=== PATIENT | female | born 1950 | race Caucasian/White ===

== ENCOUNTER 2020-03-14 10:21 | Outpatient (NON) | payer MEDICARE, MEDICAID, SELFPAY ==
[2020-03-15 00:43] LABS: SARS-CoV-2 RNA PCR Positive
== END 2020-03-14 10:22 ==
PROVIDERS: PCP Internal Medicine; Visit Provider Clinical Nurse Specialist
DX: U07.1 COVID-19 (principal)
CPT/HCPCS: 87635; C9803; U0003

== ENCOUNTER 2021-01-10 13:04 | Emergency (ER) | payer MEDICARE, MEDICAID, SELFPAY ==
[2021-01-10 13:25] VITALS: BP 136/76; PULSE 62; RESP 20; TEMP 36.6; O2SAT 97
--- NOTE | 2021-01-10 13:47 | ED.GENADULT ---
HPI - General Adult General Chief complaint: Wound/Laceration Stated complaint: rt leg puncture wound Time Seen by Provider: 01/10/21 13:43 Source: patient and RN notes reviewed Mode of arrival: ambulatory Limitations: no limitations History of Present Illness HPI narrative: Patient presents today resting in update of her tetanus vaccine. States she sustained a puncture wound from a nail that was sticking out of the wall today. She brushed up against it with her right lower leg this morning, puncturing her leg. States she cleaned the area with peroxide and applied a Band-Aid. It has been over 10 years since her last tetanus vaccine. She would not like the puncture wound evaluated or treated today. MD complaint: Tetanus vaccine Related Data Home Medications Medication Instructions Recorded Confirmed aspirin 81 mg chewable tablet 81 mg PO DAILY 05/30/19 10/05/20 carvedilol 12.5 mg tablet 12.5 mg PO Q12H 05/30/19 10/05/20 Allergies Allergy/AdvReac Type Severity Reaction Status Date / Time No Known Allergies Allergy Verified 01/10/21 13:31 Review of Systems Review of Systems: CONSTITUTIONAL: Denies body aches, fever, chills, or sweats. EYES: Denies visual changes, redness, or discharge. ENT: Denies rhinorrhea, congestion, sore throat, or otalgia. CARDIOVASCULAR: Denies chest pain, palpitations, or edema. RESPIRATORY: Denies cough or dyspnea. GASTROINTESTINAL: Denies abdominal pain, nausea, vomiting, or diarrhea. GENITOURINARY: Denies dysuria or hematuria. SKIN: Denies rash, itching. + Puncture wound to right calf MUSCULOSKELETAL: Denies back pain, joint pain, or myalgia. NEUROLOGIC: Denies headache, numbness, tingling, or weakness. PSYCH: Denies depression or anxiety. [facility] Past Medical History Medical History Depression HLD (hyperlipidemia) Hypothyroidism Myxoma Pacemaker Pulmonary nodule Thyroid disease TIA (transient ischemic attack) Surgical History Surgical History H/O rotator cuff surgery History of arthroscopy of right shoulder History of carpal tunnel release History of cholecystectomy History of hip replacement right History of partial thyroidectomy Hx of cataract surgery Family History Family History Father Carcinoma of colon, Onset Age: 64 Mother Hypertension Breast cancer CAD (coronary artery disease) Other Angina at rest CHF (congestive heart failure), NYHA class I Drug abuse Hearing loss Obesity Social History Social History Smoking status: Former smoker Smoking end date: 06/15/04 Alcohol intake: never Comments At time of signature, I have reviewed and agree with nursing past medical, surgical, social and family history unless otherwise noted. Please see nursing chart for further information. There is no relevant family history pertinent to the presenting complaint Exam Narrative: GENERAL: Well-appearing, well-nourished, and in no acute distress. HEAD: Normocephalic, atraumatic. EYES: EOMI. No redness or drainage. Conjunctivae normal. ENT: Mucous membranes pink and moist. NECK: Normal AROM. CHEST: No respiratory distress. EXTREMITIES: Normal range of motion. No edema. SKIN: Warm, dry, no rash. Capillary refill normal. Normal skin turgor. 1.5 cm flap skin tear to the posterior right calf. No active bleeding. NEURO: No focal deficits. Alert and oriented x3. Gait steady. PSYCH: Normal affect. No signs of depression or anxiety. Course Vital Signs Vital signs: Vital Signs Temperature 97.9 F 01/10/21 13:25 Pulse Rate 62 01/10/21 13:25 Respiratory Rate 20 01/10/21 13:25 Blood Pressure 136/76 01/10/21 13:25 Pulse Oximetry 97 01/10/21 13:25 Temperature 97.9 F 01/10/21 13:2
[2021-01-10] MEDS: TETANUS/DIPHTHERIA TOXOIDS ADSORB 0.5 ML VIAL (*BKC) IM (13:50)
== END 2021-01-10 14:10 | disposition home or self-care (01) ==
PROVIDERS: Emergency Provider Nurse Practitioner; PCP Internal Medicine
DX: S81.811A Laceration without foreign body, right lower leg, initial encounter (principal); W45.0XXA Nail entering through skin, initial encounter; Z23 Encounter for immunization; Z87.891 Personal history of nicotine dependence; E78.5 Hyperlipidemia, unspecified; E03.9 Hypothyroidism, unspecified; Z86.73 Personal history of transient ischemic attack (TIA), and cerebral infarction without residual deficits; Z95.0 Presence of cardiac pacemaker; Z96.641 Presence of right artificial hip joint
CPT/HCPCS: 90471; 90714; 99212; G0463

== ENCOUNTER 2021-11-22 00:10 | Day surgery (SDC) | payer MEDICARE, MEDICAID, SELFPAY ==
[2021-11-05 13:19] VITALS: BMI 27.5
--- NOTE | 2021-11-21 14:04 | PM.HPGS ---
History of Present Illness History of Present Illness Consent: Risks, benefits, and alternatives have been discussed and questions answered. Patient agrees to proceed with procedure. Chief complaint: hx polyps: fam hx of colon ca Narrative: Janet Nowak is a 71 year old female referred for colon cancer screening. She had a tubular adenoma removed about 5 years ago. Her father had colon cancer Review of Systems Review of Systems: All systems reviewed & are unremarkable except as noted in HPI and below PMFSH Past Medical History Medical History Depression HLD (hyperlipidemia) Hypothyroidism Myxoma Pacemaker Pulmonary nodule Thyroid disease TIA (transient ischemic attack) Surgical History Surgical History H/O rotator cuff surgery History of arthroscopy of right shoulder History of carpal tunnel release History of cholecystectomy History of hip replacement right History of partial thyroidectomy History of shoulder replacement left shoulder Hx of cataract surgery Family History Family History Father Carcinoma of colon, Onset Age: 64 Mother Hypertension Breast cancer CAD (coronary artery disease) Other Angina at rest CHF (congestive heart failure), NYHA class I Drug abuse Hearing loss Obesity Social History Social History Smoking packs per day: 1 Smoking cigarettes per day: 20.0 Years smoked: 45 Smoking pack-years: 45.00 Smoking status: Former smoker Tobacco type: cigarettes Smoking end date: 06/15/04 Alcohol intake: never Substance use: never Substance use type: does not use Living arrangements: with family Spiritual care concerns: No Meds Home Medications and Allergies Home Medications Medication Instructions Recorded Confirmed Type aspirin 81 mg chewable tablet 81 mg PO DAILY 05/30/19 11/05/21 History carvedilol 12.5 mg tablet 12.5 mg PO Q12H 05/30/19 11/05/21 History fluoxetine 20 mg capsule 20 mg PO DAILY #90 caps 08/16/21 11/05/21 Rx levothyroxine 25 mcg tablet 25 mcg PO DAILY #90 tabs 08/16/21 11/05/21 Rx (Synthroid) omeprazole 40 mg capsule,delayed 40 mg PO DAILY #90 caps 09/13/21 11/05/21 Rx release atorvastatin 20 mg tablet 20 mg PO DAILY #90 tabs 11/13/21 Rx Allergies Allergy/AdvReac Type Severity Reaction Status Date / Time No Known Allergies Allergy Verified 11/22/21 08:14 Exam Resp: Auscultation: clear to auscultation bilaterally Cardio: Rate: regular rate Rhythm: regular rhythm GI: GI Palp: Yes Soft to palpation and No Tenderness to palpation present (GI) Assessment and Plan Assessment and plan (1) Colon cancer screening: Code(s): Z12.11 - Encounter for screening for malignant neoplasm of colon Status: Acute Assessment and Plan: Colonoscopy with possible biopsy or polypectomy or cautery or injection of substances.
[2021-11-22 08:14] VITALS: BP 125/49; PULSE 67; RESP 16; TEMP 35.9; O2SAT 96
[2021-11-22 08:16] VITALS: BMI 27.6
[2021-11-22] MEDS: LACTATED RINGERS 1,000 ML 150 ML IV CONT (08:22)
--- NOTE | 2021-11-22 08:29 | WPDANESEPPF ---
Anes - Initial Pre Proc Eval Procedure: Operation Date: 11/22/21 09:00 Proposed Procedures p Screening Colonoscopy - Jonathan Pineda MD Date/Time: 11/22/21 08:29 Surgeon: Jonathan Pineda MD Pre Op Diagnosis: hx polyps: fam hx of colon ca Patient Data Age: 71 Gender: F Height: 1.55 m Weight: 66.4 kg Last Vital Signs Temp 96.7 F L 11/22/21 08:14 Pulse 67 11/22/21 08:14 Resp 16 11/22/21 08:14 BP 125/49 L 11/22/21 08:14 Pulse Ox 96 11/22/21 08:14 O2 Del Method Room Air 11/22/21 08:14 Allergies Allergy/AdvReac Type Severity Reaction Status Date / Time No Known Allergies Allergy Verified 11/22/21 08:14 Home Medications Medication Instructions Recorded Confirmed Type aspirin 81 mg chewable tablet 81 mg PO DAILY 05/30/19 11/05/21 History carvedilol 12.5 mg tablet 12.5 mg PO Q12H 05/30/19 11/05/21 History fluoxetine 20 mg capsule 20 mg PO DAILY #90 caps 08/16/21 11/05/21 Rx levothyroxine 25 mcg tablet 25 mcg PO DAILY #90 tabs 08/16/21 11/05/21 Rx (Synthroid) omeprazole 40 mg capsule,delayed 40 mg PO DAILY #90 caps 09/13/21 11/05/21 Rx release atorvastatin 20 mg tablet 20 mg PO DAILY #90 tabs 11/13/21 Rx Patient hx anesthesia problems: none Family hx anesthesia problems: none Results Review: All pre-operative results and documents have been reviewed as part of the pre-operative evaluation. [facility] Past Medical History Medical History Depression HLD (hyperlipidemia) Hypothyroidism Myxoma Pacemaker Pulmonary nodule Thyroid disease TIA (transient ischemic attack) Surgical History Surgical History H/O rotator cuff surgery History of arthroscopy of right shoulder History of carpal tunnel release History of cholecystectomy History of hip replacement right History of partial thyroidectomy History of shoulder replacement left shoulder Hx of cataract surgery Family History Family History Father Carcinoma of colon, Onset Age: 64 Mother Hypertension Breast cancer CAD (coronary artery disease) Other Angina at rest CHF (congestive heart failure), NYHA class I Drug abuse Hearing loss Obesity Social History Social History Smoking packs per day: 1 Smoking cigarettes per day: 20.0 Years smoked: 45 Smoking pack-years: 45.00 Smoking status: Former smoker Tobacco type: cigarettes Smoking end date: 06/15/04 Alcohol intake: never Substance use: never Substance use type: does not use Living arrangements: with family Spiritual care concerns: No Anes - Eval Final PreProcedure Day of Procedure 11/22/21 08:29 Patient weight: normal Heart: regular rate and rhythm Lungs: clear to auscultation Airway: Mallampati scale class II Neurological: alert and oriented Last oral intake: >/= 8 hours ASA classification: III Emergent: no Anesthetic plan: proceed Anesthesia type and monitoring: general GIVS and standard monitoring Results Review: All pre-operative results and documents have been reviewed as part of the pre-operative evaluation. Informed Consent: The patient's anesthetic plan and its attendant risks and benefits were discussed with the patient/family/POA. Questions were solicited and answers provided to the satisfaction of the patient/family/POA.
[2021-11-22 09:13] VITALS: BP 107/88; PULSE 60; RESP 17; O2SAT 97
[2021-11-22 09:23] VITALS: BP 93/52; PULSE 60; RESP 23; O2SAT 95
[2021-11-22 09:33] VITALS: BP 97/45; PULSE 60; RESP 14; O2SAT 96
== END 2021-11-22 10:10 | disposition home or self-care (01) ==
PROVIDERS: PCP Internal Medicine; Visit Provider Internal Medicine Gastroenterology
PROC: 0DJD8ZZ Inspection of Lower Intestinal Tract, Via Natural or Artificial Opening Endoscopic (ICD-10-PCS; CPT 45378; principal; 2021-11-22 09:00)
DX: Z12.11 Encounter for screening for malignant neoplasm of colon (principal); K57.30 Diverticulosis of large intestine without perforation or abscess without bleeding; Z86.010 Personal history of colon polyps; Z80.0 Family history of malignant neoplasm of digestive organs; E78.5 Hyperlipidemia, unspecified; E03.9 Hypothyroidism, unspecified; F32.A Depression, unspecified; Z86.73 Personal history of transient ischemic attack (TIA), and cerebral infarction without residual deficits; Z95.0 Presence of cardiac pacemaker; Z79.82 Long term (current) use of aspirin; Z87.891 Personal history of nicotine dependence
CPT/HCPCS: G0105; J2704; J7120

== ENCOUNTER 2021-11-30 19:45 | Emergency (ER) | payer MEDICARE, MEDICAID, SELFPAY ==
[2021-11-30] VITALS (19 sets, daily range): BP systolic 161–198; BP diastolic 64–117; PULSE 60–69; RESP 11–18; O2SAT 95–100
--- NOTE | ~2021-11-30 | CT_ITS ---
EXAMINATION: CT brain wo con DATE: 11/30/2021 20:31 INDICATION: Dizziness, Vomiting . TECHNIQUE: Computed tomography (CT) of the head was performed without intravenous contrast. The mA wa s adjusted according to patient size. Iterative reconstruction technique was employed. The dose-lengt h product was 605.33 mGy-cm. COMPARISON: 06/03/2017. FINDINGS: No acute intracranial hemorrhage or extra-axial fluid collection. No hydrocephalus, mass, or herniation. No acute ischemic infarct. Unremarkable dural venous sinus attenuation. No acute osseous abnormality. The aerated spaces are clear. Mild atrophy and moderate chronic white matter change. 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 Atherosclerotic intracranial calcifications. Bilateral lens replacements. IMPRESSION: No acute intracranial process. Reviewed, dictated and finalized at location K.
--- NOTE | 2021-11-30 19:45 | ECG_ITS ---
Measurements Intervals [place] Rate: 59 P: 217 UT: 152 QRS: 57 QRSD: 94 T: 43 QT: 464 QTc: 463 Interpretive Statements ELECTRONIC ATRIAL PACEMAKER BASELINE ARTIFACT NONSPECIFIC ST ABNORMALITY ABNORMAL ECG NO PREVIOUS ECG AVAILABLE FOR COMPARISON Electronically Signed On 12-01-2021 9:24:45 CDT by Xander Prabhakar M.D.
--- NOTE | 2021-11-30 19:47 | ED.DIZZY ---
HPI - Dizziness General Chief Complaint: Dizziness Stated Complaint: dizziness and vomiting at fair History of Present Illness HPI Narrative: 71-year-old female presents emergency room by ambulance secondary to dizziness and vomiting. She states she has had quite a busy day today but not doing some shopping. She was back on for a while. She went back out approximately 2-1/2 hours ago that had a sudden onset of feeling extremely dizzy and began having vomiting associated with that. She had only been outside for a few hours and does not feel like she is dramatically overheated. She denies any focal weakness to her arms or legs. Denies any chest pain or shortness of breath. She describes sensation as everything spinning especially when she opens her eyes or moves her head. She has underlying history of syncopal episodes when she would turn her head to the right so recently had a pacemaker inserted. Related Data Home Medications Medication Instructions Recorded Confirmed aspirin 81 mg chewable tablet 81 mg PO DAILY 05/30/19 11/05/21 carvedilol 12.5 mg tablet 12.5 mg PO Q12H 05/30/19 11/05/21 Allergies Allergy/AdvReac Type Severity Reaction Status Date / Time No Known Allergies Allergy Verified 11/22/21 08:14 Review of Systems Review of Systems: CONSTITUTIONAL: Denies fever, chills, or sweats. EYES: Denies visual changes, redness, or discharge. ENT: Denies rhinorrhea, congestion, sore throat, or otalgia. CARDIOVASCULAR: Denies chest pain, palpitations, or edema. RESPIRATORY: Denies cough or dyspnea. GASTROINTESTINAL: Denies abdominal pain. Experiencing nausea and vomiting GENITOURINARY: Denies dysuria or hematuria. SKIN: Denies rash or itching. MUSCULOSKELETAL: Denies back pain, joint pain, or myalgia. NEUROLOGIC: Denies headache, numbness, or weakness. Extreme dizziness PSYCHIATRIC: Denies anxiety or depression. [facility] Past Medical History Medical History Depression HLD (hyperlipidemia) Hypothyroidism Myxoma Pacemaker Pulmonary nodule Thyroid disease TIA (transient ischemic attack) Surgical History Surgical History H/O rotator cuff surgery History of arthroscopy of right shoulder History of carpal tunnel release History of cholecystectomy History of hip replacement right History of partial thyroidectomy History of shoulder replacement left shoulder Hx of cataract surgery Family History Family History Father Carcinoma of colon, Onset Age: 64 Mother Hypertension Breast cancer CAD (coronary artery disease) Other Angina at rest CHF (congestive heart failure), NYHA class I Drug abuse Hearing loss Obesity Social History Social History Smoking packs per day: 1 Smoking cigarettes per day: 20.0 Years smoked: 45 Smoking pack-years: 45.00 Smoking status: Former smoker Tobacco type: cigarettes Smoking end date: 06/15/04 Alcohol intake: never Substance use: never Substance use type: does not use Spiritual care concerns: No Exam Narrative: APPEARANCE: Ill-appearing Head normocephalic and atraumatic. EYES: PERRLA/EOMI, conjunctivae very clear. Nystagmus with a lateral gaze greater when looking to the left NOSE: Normal with no drainage EARS:TMS clear Tess Ahuja, with good light reflex. THROAT: Pharynx clear, no exudate. NECK: Supple. No adenopathy, no masses. RESPIRATORY: Airway patent, respirations nonlabored. Clear to auscultation bilaterally, no rales, rhonchi, wheezing. CARDIOVASCULAR: Regular rate and rhythm without murmurs, rubs, or gallops. ABDOMINAL: Soft, nontender, nondistended, no hepatosplenomegaly Musculoskeletal: Moves all extremities. Strength/ROM intact, No edema, No calf tenderness. NEURO: Alert. Cranial nerves II through XII
[2021-11-30 19:55] LABS: Basophils Percent Auto 0.3 % (0.2-1.2); Eosinophils Percent Auto 0.1 % (0-4.4); Hematocrit 43.2 % (37.0-47.0); Hemoglobin 14.4 g/dL (12.0-15.0); Immature Granulocyte Percent A 0.7 % (0-0.5); Lymphocytes Absolute Auto 4.58 K/mm3 (0.9-3.2); Lymphocytes Percent Auto 30.5 % (18.3-44.2); Mean Corpuscular HGB Conc 33.3 g/dl (32-36); Mean Platelet Volume 9.7 fl (7.4-10.4); Monocytes Absolute Auto 1.3 K/mm3 (0.1-0.6); Monocytes Percent Auto 8.8 % (2.6-8.5); Neutrophils Percent Auto 59.6 % (45.5-73.1); Platelet Count Result 332 k/mm3 (150-375); Red Cell Distribution Width 12.4 % (11.5-14.5)
[2021-11-30] MEDS: ONDANSETRON INJ 4 MG/2 ML VIAL IV PUSH ×2 (20:01→21:17)
[2021-11-30] MEDS: SODIUM CHLORIDE 0.9% IV 1,000 ML 999 ML IV CONT (20:03)
[2021-11-30 20:05] LABS: Alanine Aminotransferase 17 U/L (6-35); Albumin Level 4.7 g/dL (3.5-5.1); Alkaline Phosphatase 113 U/L (38-126); Anion Gap 7 mmol/L (8-16); Aspartate Amino Transferase 22 U/L (14-36); Bilirubin,Total 0.6 mg/dL (0.2-1.3); Blood Urea Nitrogen 24 mg/dL (7-17); Calcium 9.2 mg/dL (8.4-10.2); Carbon Dioxide 26 mmol/L (22-30); Chloride 107 mmol/L (98-107); Estimated CRCL calculation 39 ml/min; Estimated Glomerular Filt Rate 55; Glucose 171 mg/dL (65-110); Potassium 4.1 mmol/L (3.4-5.0); Sodium 140 mmol/L (137-145)
[2021-11-30] MEDS: MECLIZINE HCL 25 MG TABLET PO (20:07)
[2021-11-30] MEDS: diazePAM INJ (*CRX) 10 MG/2 ML SYRINGE 2.5 MG IV PUSH (21:17)
== END 2021-11-30 23:09 | disposition home or self-care (01) ==
PROVIDERS: Emergency Provider Emergency Medicine; PCP Internal Medicine
DX: R42 Dizziness and giddiness (principal); E78.5 Hyperlipidemia, unspecified; E89.0 Postprocedural hypothyroidism; Z86.73 Personal history of transient ischemic attack (TIA), and cerebral infarction without residual deficits; Z95.0 Presence of cardiac pacemaker; Z96.641 Presence of right artificial hip joint; Z79.82 Long term (current) use of aspirin; Z96.612 Presence of left artificial shoulder joint; Z98.49 Cataract extraction status, unspecified eye; Z87.891 Personal history of nicotine dependence; R94.31 Abnormal electrocardiogram [ECG] [EKG]
CPT/HCPCS: 36415; 70450; 80053; 85025; 93005; 96361; 96374; 96375; 96376; 99284; A9270; J2405; J3360; J7030

== ENCOUNTER 2022-01-07 09:06 | Outpatient (CLI) | payer MEDICARE, MEDICAID, SELFPAY ==
[2022-01-07 19:02] LABS: Alanine Aminotransferase 20 U/L (6-35); Albumin Level 4.4 g/dL (3.5-5.1); Alkaline Phosphatase 104 U/L (38-126); Anion Gap 8 mmol/L (8-16); Aspartate Amino Transferase 40 U/L (14-36); Bilirubin,Total 0.9 mg/dL (0.2-1.3); Blood Urea Nitrogen 28 mg/dL (7-17); Calcium 9.2 mg/dL (8.4-10.2); Carbon Dioxide 33 mmol/L (22-30); Chloride 102 mmol/L (98-107); Estimated Glomerular Filt Rate > 60; Glucose 108 mg/dL (65-110); Magnesium 2.1 mg/dL (1.6-2.3); Potassium 4.9 mmol/L (3.4-5.0); Sodium 143 mmol/L (137-145)
== END 2022-01-07 09:07 | disposition home or self-care (01) ==
LOC: ANHGOSHLAB 09:08
PROVIDERS: PCP Internal Medicine; Visit Provider Clinical Nurse Specialist
DX: R42 Dizziness and giddiness (principal); C73 Malignant neoplasm of thyroid gland
CPT/HCPCS: 36415; 80053; 83735; 84439; 84443

== ENCOUNTER 2022-01-15 14:40 | Outpatient (CLI) | payer MEDICARE, MEDICAID, SELFPAY ==
--- NOTE | ~2022-01-15 | US_ITS ---
EXAMINATION: US carotid duplex BI DATE: 01/15/2022 15:13 INDICATION: Dizziness, nausea and visual disturbance TECHNIQUE: Grayscale, color Doppler, and pulsed Doppler images of the cervical carotid arteries were obtained. The degree of vessel stenosis is placed in one of the following categories: normal, <50%, 5 0-69%, >=70% but less than near-occlusion, near-occlusion, or total occlusion. Note that percent sten osis relative to normal distal artery lumen diameter is indirectly measured from velocity measurement s as described by Jimmie, et al. Radiology 2003; 229:340-346. Notes: Normal: Peak systolic velocity <125 centimeters/sec and no plaque <50%. Peak systolic velocity <125 ( EDV <40; ICA/CCA PSV ratio <2.0; used these factors only a tandem lesions or low cardiac output or co ntralateral disease) 50-69 %: PSV 125-230 (EDV 40-100; ratio 2-4) >= 70% but less than near occlusion: PSV greater than 230 (EDV > 100; ratio> 4.0) Near Occlusion: PSV that is variable; markedly narrowed lumen Occlusion: Absent flow on color/spectral Doppler and no lumen on bales scale. COMPARISON: None. FINDINGS: RIGHT: The right common carotid artery (CCA) peak systolic velocity (PSV) is 63 cm/s. The right internal car otid artery (ICA) PSV is 99 cm/s. The right ICA end-diastolic velocity (EDV) is 33 cm/s. The right IC A/CCA PSV ratio is 1.6. The external carotid artery (ECA) PSV is 137 cm/s. There is antegrade flow in the right vertebral artery. LEFT: The left CCA PSV is 85 cm/s. The left ICA PSV is 79 cm/s. The left ICA EDV is 23 cm/s. The left ICA/C CA PSV ratio is 0.9. The ECA PSV is 136 cm/s. There is antegrade flow in the left vertebral artery. IMPRESSION: 1. Less than 50% stenosis in the right internal carotid artery by sonographic criteria. 2. Less than 50% stenosis in the left internal carotid artery by sonographic criteria. Reviewed, dictated and finalized at location A. IMPRESSION: 1. Less than 50% stenosis in the right internal carotid artery by sonographic c alexandrea. 2. Less than 50% stenosis in the left internal carotid artery by sonographic cr eunice.
== END 2022-01-15 14:41 | disposition home or self-care (01) ==
LOC: ANHIMG 14:41
PROVIDERS: PCP Internal Medicine; Visit Provider Clinical Nurse Specialist
DX: R42 Dizziness and giddiness (principal); I65.23 Occlusion and stenosis of bilateral carotid arteries
CPT/HCPCS: 93880

== ENCOUNTER 2022-01-29 07:21 | Outpatient (RCR) | payer MEDICARE, MEDICAID, SELFPAY | END 2022-04-14 11:53 | disposition home or self-care (01) | LOC: ANHPT 07:21 | PROVIDERS: PCP Internal Medicine; Visit Provider Nurse Practitioner | DX: R42 Dizziness and giddiness (principal) | CPT/HCPCS: 99199 ==

== ENCOUNTER 2022-08-27 10:17 | Outpatient (CLI) | payer MEDICARE, MEDICAID, SELFPAY ==
[2022-08-27 11:58] LABS: Prothrombin Time 12.5 Seconds (11.1-14.7)
[2022-08-27 11:59] LABS: Partial Thromboplastin Time 22.8 SECONDS (22.3-36.8)
[2022-08-27 19:22] LABS: Basophils Absolute Auto 0.1 K/mm3 (0.0-0.1); Basophils Percent Auto 0.5 % (0.2-1.2); Eosinophils Absolute Auto 0.1 K/mm3 (0-0.3); Eosinophils Percent Auto 0.8 % (0-4.4); Hematocrit 41.5 % (37.0-47.0); Hemoglobin 13.9 g/dL (12.0-15.0); Immature Granulocyte Percent A 1.8 % (0-0.5); Lymphocytes Percent Auto 28.5 % (18.3-44.2); Mean Corpuscular HGB Conc 33.5 g/dl (32-36); Mean Corpuscular Hemoglobin 29.9 pg (26-34); Mean Corpuscular Volume 89.2 fl (80-100); Mean Platelet Volume 10.3 fl (7.4-10.4); Monocytes Absolute Auto 0.8 K/mm3 (0.1-0.6); Monocytes Percent Auto 7.6 % (2.6-8.5); Neutrophils Absolute Auto 6.6 K/mm3 (1.3-6.7); Neutrophils Percent Auto 60.8 % (45.5-73.1); Platelet Count Result 264 k/mm3 (150-375); Red Blood Count 4.65 M/mm3 (4.2-5.4); White Blood Count 10.9 K/mm3 (4.5-10.0)
[2022-08-27 20:15] LABS: Alanine Aminotransferase 21 U/L (6-35); Alkaline Phosphatase 75 U/L (38-126); Anion Gap 7 mmol/L (8-16); Aspartate Amino Transferase 47 U/L (14-36); Bilirubin,Total 0.6 mg/dL (0.2-1.3); Blood Urea Nitrogen 18 mg/dL (7-17); Calcium 8.6 mg/dL (8.4-10.2); Carbon Dioxide 26 mmol/L (22-30); Chloride 103 mmol/L (98-107); Estimated Glomerular Filt Rate > 60; Glucose 104 mg/dL (65-110); Potassium 3.8 mmol/L (3.4-5.0); Sodium 136 mmol/L (137-145)
[2022-08-27 20:28] LABS: Vitamin D 25 Hydroxy 33.4 ng/mL
== END 2022-08-27 10:18 | disposition home or self-care (01) ==
LOC: ANHGOSHLAB 10:19
PROVIDERS: PCP Internal Medicine; Visit Provider Nurse Practitioner
DX: T14.8XXA Other injury of unspecified body region, initial encounter (principal); R42 Dizziness and giddiness; E55.9 Vitamin D deficiency, unspecified; E07.9 Disorder of thyroid, unspecified; Z13.29 Encounter for screening for other suspected endocrine disorder
CPT/HCPCS: 36415; 80053; 82306; 82607; 82746; 84443; 85025; 85610; 85730

== ENCOUNTER 2022-10-28 15:48 | Outpatient (CLI) | payer MEDICARE, MEDICAID, SELFPAY ==
[2022-10-28 19:20] LABS: Vitamin D 25 Hydroxy 39.9 ng/mL
[2022-10-28 19:22] LABS: Alanine Aminotransferase 32 U/L (6-35); Albumin Level 4.4 g/dL (3.5-5.1); Alkaline Phosphatase 89 U/L (38-126); Anion Gap 6 mmol/L (8-16); Aspartate Amino Transferase 43 U/L (14-36); Bilirubin,Total 1.1 mg/dL (0.2-1.3); Blood Urea Nitrogen 13 mg/dL (7-17); Calcium 8.8 mg/dL (8.4-10.2); Carbon Dioxide 30 mmol/L (22-30); Chloride 103 mmol/L (98-107); Estimated Glomerular Filt Rate > 60; Glucose 108 mg/dL (65-110); Potassium 3.6 mmol/L (3.4-5.0); Sodium 139 mmol/L (137-145)
[2022-10-28 19:33] LABS: Basophils Absolute Auto 0.1 K/mm3 (0.0-0.1); Basophils Percent Auto 0.6 % (0.2-1.2); Eosinophils Absolute Auto 0.2 K/mm3 (0-0.3); Eosinophils Percent Auto 2.1 % (0-4.4); Hematocrit 40.2 % (37.0-47.0); Hemoglobin 13.3 g/dL (12.0-15.0); Immature Granulocyte Absolute 0.04 K/mm3 (0.00-0.031); Immature Granulocyte Percent A 0.5 % (0-0.5); Lymphocytes Absolute Auto 3.34 K/mm3 (0.9-3.2); Lymphocytes Percent Auto 38.4 % (18.3-44.2); Mean Corpuscular HGB Conc 33.1 g/dl (32-36); Mean Corpuscular Hemoglobin 30.2 pg (26-34); Mean Corpuscular Volume 91.4 fl (80-100); Mean Platelet Volume 10.4 fl (7.4-10.4); Monocytes Absolute Auto 0.6 K/mm3 (0.1-0.6); Monocytes Percent Auto 6.8 % (2.6-8.5); Neutrophils Absolute Auto 4.5 K/mm3 (1.3-6.7); Neutrophils Percent Auto 51.6 % (45.5-73.1); Platelet Count Result 254 k/mm3 (150-375); Red Cell Distribution Width 13.2 % (11.5-14.5); White Blood Count 8.7 K/mm3 (4.5-10.0)
[2022-10-28 19:54] LABS: Hepatitis C Virus Antibody Negative (Negative)
[2022-10-28 20:02] LABS: Erythrocyte Sedimentation Rate 21 mm/hr (0-20)
[2022-10-28 20:04] LABS: Rheumatoid Factor < 12.0 IU/ML (<12)
[2022-10-28 20:34] LABS: Folic Acid > 20.0 ng/mL (2.76->20)
[2022-11-04 18:17] LABS: Cryoglobulin, QL Negative (Negative)
[2022-11-04 20:53] LABS: ANCA Screen Negative (Negative)
== END 2022-10-28 15:49 | disposition home or self-care (01) ==
LOC: ANHGOSHLAB 15:50
PROVIDERS: PCP Internal Medicine; Visit Provider Internal Medicine
DX: E55.9 Vitamin D deficiency, unspecified (principal); E53.8 Deficiency of other specified B group vitamins; R23.1 Pallor; T14.8XXA Other injury of unspecified body region, initial encounter
CPT/HCPCS: 36415; 80053; 82306; 82595; 82607; 82746; 85025; 85652; 86036; 86038; 86430; 86803

== ENCOUNTER 2022-10-29 09:46 | Outpatient (NON) | payer MEDICARE, MEDICAID, SELFPAY ==
[2022-10-29 20:59] LABS: Appearance Urine Cloudy (Clear); Bacteria Urine 4+ /hpf; Bilirubin Urine Negative (Negative); Blood Urine Negative (Negative); Color Urine Yellow (Yellow); Glucose Urine UA Negative (Negative); Hyaline Casts Urine Present /lpf; Ketones Urine Negative (Negative); Leukocyte Esterase Ur 1+ LEU/UL (NEGATIVE); Nitrate Urine Negative (Negative); Non Pathogenic Casts 0-2; Protein Urine Negative (Negative); Squamous Epithelial Cell Urine None seen /hpf (Few)
[2022-10-29 21:00] LABS: Add Urine Microscopic? YES
== END 2022-10-29 09:47 | disposition home or self-care (01) ==
LOC: ANHGOSHLAB 09:53
PROVIDERS: PCP Internal Medicine; Visit Provider Internal Medicine
DX: T14.8XXA Other injury of unspecified body region, initial encounter (principal); R23.1 Pallor; E53.8 Deficiency of other specified B group vitamins; E55.9 Vitamin D deficiency, unspecified
CPT/HCPCS: 81001

== ENCOUNTER 2022-11-18 16:12 | Outpatient (CLI) | payer MEDICARE, MEDICAID, SELFPAY ==
[2022-11-24 13:44] LABS: von Willebrand Factor Ag 189 % (50-217)
== END 2022-11-18 16:13 | disposition home or self-care (01) ==
LOC: ANHGOSHLAB 16:12
PROVIDERS: PCP Internal Medicine; Visit Provider Internal Medicine
DX: T14.8XXA Other injury of unspecified body region, initial encounter (principal); X58.XXXA Exposure to other specified factors, initial encounter
CPT/HCPCS: 36415; 85246

== ENCOUNTER 2023-09-07 14:27 | Outpatient (CLI) | payer OTHER, MEDICARE, SELFPAY ==
[2023-09-07 17:09] LABS: Prothrombin Time 13.1 Seconds (11.1-14.7)
[2023-09-07 18:18] LABS: Alanine Aminotransferase 27 U/L (6-35); Albumin Level 4.2 g/dL (3.5-5.1); Alkaline Phosphatase 101 U/L (38-126); Anion Gap 4 mmol/L (8-16); Aspartate Amino Transferase 56 U/L (14-36); Bilirubin,Total 0.9 mg/dL (0.2-1.3); Blood Urea Nitrogen 16 mg/dL (7-17); Calcium 9.5 mg/dL (8.4-10.2); Carbon Dioxide 28 mmol/L (22-30); Chloride 108 mmol/L (98-107); Estimated Glomerular Filt Rate > 60; Glucose 105 mg/dL (65-110); Potassium 4.4 mmol/L (3.4-5.0); Sodium 140 mmol/L (137-145)
[2023-09-07 19:10] LABS: Basophils Percent Auto 0.4 % (0.2-1.2); Eosinophils Absolute Auto 0.2 K/mm3 (0-0.3); Eosinophils Percent Auto 2.1 % (0-4.4); Hematocrit 39.4 % (37.0-47.0); Hemoglobin 12.9 g/dL (12.0-15.0); Immature Granulocyte Absolute 0.04 K/mm3 (0.00-0.031); Immature Granulocyte Percent A 0.4 % (0-0.5); Lymphocytes Absolute Auto 3.28 K/mm3 (0.9-3.2); Lymphocytes Percent Auto 35.1 % (18.3-44.2); Mean Corpuscular HGB Conc 32.7 g/dl (32-36); Mean Corpuscular Hemoglobin 30.7 pg (26-34); Mean Corpuscular Volume 93.8 fl (80-100); Mean Platelet Volume 10.7 fl (7.4-10.4); Monocytes Absolute Auto 0.8 K/mm3 (0.1-0.6); Monocytes Percent Auto 8.2 % (2.6-8.5); Neutrophils Percent Auto 53.8 % (45.5-73.1); Platelet Count Result 258 k/mm3 (150-375); Red Cell Distribution Width 12.7 % (11.5-14.5); White Blood Count 9.3 K/mm3 (4.5-10.0)
[2023-09-07 22:50] LABS: Bacteria Urine None Seen /hpf; Non Pathogenic Casts 0-2; RBC Urine 0-2 /hpf (0-2); Squamous Epithelial Cell Urine None Seen /hpf (Few); WBC Urine 0-5 /hpf (0-3)
[2023-09-07 22:52] LABS: Appearance Urine Clear (Clear); Color Urine Yellow (Yellow); Protein Urine Negative (Negative); Specific Grav Ur 1.025 (1.001-1.035); pH Urine 5.5 (5.0-9.0)
[2023-09-07 22:53] LABS: Bilirubin Urine Negative (Negative); Blood Urine Negative (Negative); Glucose Urine UA Negative (Negative); Ketones Urine Negative (Negative); Leukocyte Esterase Ur Negative LEU/UL (Negative); Nitrate Urine Negative (Negative)
[2023-09-07 22:58] LABS: Add Urine Microscopic? YES
== END 2023-09-07 14:28 | disposition home or self-care (01) ==
LOC: ANHGOSHLAB 14:29
PROVIDERS: PCP Internal Medicine; Visit Provider Internal Medicine
DX: D21.9 Benign neoplasm of connective and other soft tissue, unspecified (principal); I10 Essential (primary) hypertension; Z01.818 Encounter for other preprocedural examination; Z95.0 Presence of cardiac pacemaker
CPT/HCPCS: 36415; 80053; 81001; 81003; 85025; 85610

== ENCOUNTER 2023-09-07 14:36 | Outpatient (CLI) | payer OTHER, MEDICARE, SELFPAY ==
--- NOTE | ~2023-09-07 | XR_ITS ---
EXAMINATION: XR chest 2V 09/07/2023 14:44 INDICATION: Preop evaluation. PROCEDURE: 2 view chest COMPARISON: 06/03/2017 FINDINGS: The lungs are clear. Status post median sternotomy for CABG. Pacemaker leads are in expecte d position. The cardiomediastinal silhouette is within normal limits. There are no pleural effusions . There is no pneumothorax suspected. There are cholecystectomy clips. IMPRESSION: 1: NO ACUTE CARDIOPULMONARY DISEASE. Reviewed, dictated and finalized at location B.
== END 2023-09-07 14:37 ==
PROVIDERS: PCP Internal Medicine; Visit Provider Internal Medicine
DX: D21.9 Benign neoplasm of connective and other soft tissue, unspecified (principal); I10 Essential (primary) hypertension; Z95.0 Presence of cardiac pacemaker; Z01.818 Encounter for other preprocedural examination
CPT/HCPCS: 71046

== ENCOUNTER 2024-02-05 12:44 | Outpatient (CLI) | payer OTHER, MEDICARE, SELFPAY | END 2024-02-05 12:45 | disposition home or self-care (01) | LOC: ANHGOSHLAB 12:46 | PROVIDERS: PCP Internal Medicine; Visit Provider Internal Medicine | DX: E03.9 Hypothyroidism, unspecified (principal); Z85.850 Personal history of malignant neoplasm of thyroid | CPT/HCPCS: 36415; 84443 ==

== ENCOUNTER 2024-05-19 09:26 | Outpatient (CLI) | payer OTHER, MEDICARE, SELFPAY ==
[2024-05-19 12:41] LABS: Basophils Percent Auto 0.5 % (0.2-1.2); Eosinophils Absolute Auto 0.1 K/mm3 (0-0.3); Eosinophils Percent Auto 2.3 % (0-4.4); Hematocrit 37.8 % (37.0-47.0); Hemoglobin 12.2 g/dL (12.0-15.0); Immature Granulocyte Absolute 0.01 K/mm3 (0.00-0.031); Immature Granulocyte Percent A 0.2 % (0-0.5); Lymphocytes Absolute Auto 3.03 K/mm3 (0.9-3.2); Lymphocytes Percent Auto 49.4 % (18.3-44.2); Mean Corpuscular HGB Conc 32.3 g/dl (32-36); Mean Corpuscular Hemoglobin 29.5 pg (26-34); Mean Corpuscular Volume 91.3 fl (80-100); Mean Platelet Volume 10.4 fl (7.4-10.4); Monocytes Absolute Auto 0.5 K/mm3 (0.1-0.6); Monocytes Percent Auto 8.5 % (2.6-8.5); Neutrophils Absolute Auto 2.4 K/mm3 (1.3-6.7); Neutrophils Percent Auto 39.1 % (45.5-73.1); Platelet Count Result 254 k/mm3 (150-375); Red Blood Count 4.14 M/mm3 (4.2-5.4); Red Cell Distribution Width 13.2 % (11.5-14.5); White Blood Count 6.1 K/mm3 (4.5-10.0)
[2024-05-19 13:06] LABS: Alanine Aminotransferase 21 U/L (6-35); Albumin Level 3.9 g/dL (3.5-5.1); Alkaline Phosphatase 121 U/L (38-126); Anion Gap 5 mmol/L (4-12); Aspartate Amino Transferase 62 U/L (14-36); Bilirubin,Total 0.8 mg/dL (0.2-1.3); Blood Urea Nitrogen 16 mg/dL (7-17); Calcium 9.1 mg/dL (8.4-10.2); Carbon Dioxide 28 mmol/L (22-30); Chloride 108 mmol/L (98-107); Cholesterol 117 mg/dL (0-200); Estimated Glomerular Filt Rate > 60; Glucose 92 mg/dL (65-110); HDL Direct 40 mg/dL; Potassium 4.1 mmol/L (3.4-5.0); Sodium 141 mmol/L (137-145); Triglycerides 129 mg/dL (<150)
[2024-05-19 13:18] LABS: LDL Cholesterol Direct 44 mg/dL
[2024-05-23 15:59] LABS: Thyroglobulin 15.8 ng/mL; Thyroglobulin Antibodies <1 IU/mL (< or = 1)
== END 2024-05-19 09:27 | disposition home or self-care (01) ==
PROVIDERS: PCP Internal Medicine; Visit Provider Internal Medicine
DX: E03.9 Hypothyroidism, unspecified (principal); I10 Essential (primary) hypertension; Z85.850 Personal history of malignant neoplasm of thyroid
CPT/HCPCS: 36415; 80053; 80061; 84432; 85025; 86800

== ENCOUNTER 2024-11-08 12:45 | Outpatient (CLI) | payer OTHER, MEDICARE, SELFPAY ==
--- OUTSIDE RECORDS SUMMARY | 2024-11-08 12:52 | XMS_ITS | Patient Health Record ---
Author Organization [facility] Address [address] [place] [address] Care Team Providers Care Tile Setter Apprentice Name Role Phone Choco Stone Primary Care Provider Reason For Referral No Information Immunizations Vaccine Route Administration Date Status Comme nts COVID-19 Moderna 2nd IM Intramuscular 08/16/2020 Administered COVID-19 Moderna 1ST IM Intramuscular 07/19/2020 Administered EUA date 0. Screening reviewed and consent signed. Patient tolerated well. Plan Of Treatment No Information Insurance Providers Payer Name Payer Address Payer Phone Subscriber Number Group Number Insured Name Patient Relationship to Insured Coverage Start Date Coverage End Date MEDICARE PART A [address] [place] [phone] [id number] Janet Nowak Self - patient is the insured 1
--- OUTSIDE RECORDS SUMMARY | 2024-11-08 12:52 | XMS_ITS | Encounter Summary ---
Author Organization [facility] Address [address] [place] [address] Care Team Providers Care Production Gear Cutter Name Role Phone Landon Hamilton DO Primary Care Provider + [phone] Idris Cleaning MD Unavailable [phone] Yas Gallego Unavailable [phone] Po Dickerson Unavailable [phone] Encounter Details Date Type Department Care Team (Late st Contact Info) Description 11/03/2024 Results Follow-Up [facility] Orthopedic and Sports Medicine [address] [place] [id number] Yas Gallego PA [address] [place] [address] [address] [place] [id number] CBC with auto differential, CRP (acute phase), Erythrocyte sedimentation rate, Additional followed-up results: 5 Social History Tobacco Use Types Packs/Day Years Used Date Smoking Tobacco: Former Cigarettes Q uit: 2004 Smokeless Tobacco: Never Alcohol Use Standard Drinks/Week Comments No 0 (1 standard drink = 0.6 oz pur e alcohol) AUDIT-C Answer Date Recorded Q1: How often do you have a drink containing alc ohol? Never 11/01/2024 Average Number of Drinks Not on file 025 Frequency of Binge Drinking Not on file 10/14 Personal Safety Answer Date Recorded Have you ever been in or are you currently in a harmful physical or emotional relationship or is someone making you feel afraid or unsafe? 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 Gender Identity Not on file Sexual Orientation Not on file documented as of this encounter Plan of Treatment Not on file documented as of this encounter Visit Diagnoses Not on filedocumented in this encounter Care Teams Production Gear Cutter Relationship Specialty Start Date End Date Landon Hamilton DO PCP - General 10/18/16 Idris Cleaning MD [address] [place] [address] Vocal Music Instructor Cardiology 08/31/20 Yas Gallego PA [address] [place] [address] Physician Robotic Machine Tender Production Orthopedic Surgery 10/26/20 Po Dickerson PA [address] [facility] [place] [address] Orthopedic Surgery 09/29/23 documented as of this encounter
--- OUTSIDE RECORDS SUMMARY | 2024-11-08 12:52 | XMS_ITS | Encounter Summary ---
Author Organization [facility] Healthcare Address [address] [place] [address] Care Team Providers Care Neurourologist Name Role Phone Landon Hamilton DO Primary Care Provider + [phone] Idris Cleaning MD Unavailable [phone] Yas Gallego Unavailable [phone] Po Dickerson Unavailable + [phone] Encounter Details Date Type Department Care Team (Late st Contact Info) Description 08/08/2020 Telephone [facility] [address] [place] [address] Ashlee Day, RT Social History Tobacco Use Types Packs/Day Years Used Date Smoking Tobacco: Former Smokeless Tobacco: Former Alcohol Use Standard Drinks/Week Comments No 0 (1 standard drink = 0.6 oz pur e alcohol) Comments Unknown Sex and Gender Information Value Date Recorded Sex Assigned at Not on file 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 Gender Identity Not on file Sexual Orientation Not on file documented as of this encounter Plan of Treatment Not on file documented as of this encounter Visit Diagnoses Not on filedocumented in this encounter Care Teams Neurourologist Relationship Specialty Start Date End Date Landon Hamilton DO PCP - General 10/18/16 Idris Cleaning MD [address] [place], [place] [id number] Optical Fabrication Technician Cardiology 08/31/20 Yas Gallego PA [address] [place] [address] Physician Electoral Officer Orthopedic Surgery 10/26/20 Po Dickerson PA [address] [facility] [address] E[address] [place] [id number] Orthopedic Surgery 09/29/23 documented as of this encounter
--- OUTSIDE RECORDS SUMMARY | 2024-11-08 12:52 | XMS_ITS | Clinical Summary ---
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 0 Active omeprazole (PriLOSEC) 40 mg capsule Take 1 capsule (40 mg total) by mouth daily 1 Active atorvastatin (LIPITOR) 20 mg tablet Take 1 tablet (20 mg total) by mouth daily 3 Active ascorbic acid (ascorbic acid with randolph hips) 500 mg tablet,chewable Take 1 tablet/chew tab (500 mg total) by mouth 2 (two) times a day 60 tablet/chew tab 4 Active cholecalciferol , vitamin D3, 1,000 unit tablet,chewable Take 2 tablet/chew tab by mouth daily 60 tablet/chew tab 4 Active ondansetron (ZOFRAN) 4 mg tabletIndicatio ns:Prevention of Post-Operative Nausea and Vomiting Take 1 tablet (4 mg total) by mouth every 6 (six) hours as needed for nausea or vomiting 30 tablet 1 4 Active senna-docusate (PERICOLACE) 8.6-50 mg 1-2 times daily as needed for constipation 60 tablet 1 4 Active cyclobenzaprine (FLEXERIL) 10 mg tablet Take 1 tablet (10 mg total) by mouth 2 (two) times a day as needed for muscle spasms 30 tablet 4 Active FLUoxetine 10 mg capsule Take 1 tablet/capsule (10 mg total) by mouth daily 4 Active celecoxib (CeleBREX) 100 mg capsule Take 1 capsule (100 mg total) by mouth 2 (two) times a day Every other day 60 capsule 4 Active carvediloL (COREG) 25 mg tablet TAKE 1 TABLET BY MOUTH TWICE DAILY WITH MEALS. APPOINTMENT REQUIRED FOR FUTURE REFILLS. 180 tablet 3 4 Active irbesartan (AVAPRO) 75 mg tablet Take 1 tablet by mouth nightly 90 tablet 3 5 Active Active Problems Problem Noted Date Diagnosed Date TIA (transient ischemic attack) 09/29/2023 Overview (09/29/2023): Per verbal history from patient. Primary osteoarthritis of left knee 09/14/2023 Imbalance 05/15/2023 Abnormal MRI 01/20/2023 Vertigo 01/20/2023 Sensorineural hearing loss (SNHL) of both ears 0 10/02/2022 LV dysfunction 11/20/2020 Rotator cuff arthropathy, left 10/09/2020 Overview (10/09/2020): Added automatically from request for surgery [id number] Biceps tendonitis on left 10/09/2020 Overview (10/09/2020): Added automatically from request for surgery [id number] Preop testing 08/31/2020 Rotator cuff arthropathy of left shoulder 2020 Biceps tendinitis of left upper extremity 2020 Psoas tendinitis of left side 11/17/2019 Osteoarthritis of spine with radiculopathy, lumb ar region 11/17/2019 Ventricular myxoma 12/17/2018 Mitral valve regurgitation 12/17/2018 Bradycardia 06/13/2018 Essential hypertension 06/13/2018 Syncope and collapse 04/14/2018 Pacemaker 04/14/2018 NSVT (nonsustained ventricular tachycardia) 03/17 Muscle tension dysphonia 10/14/2017 Follicular neoplasm of thyroid 07/16/2017 Primary osteoarthritis of shoulders, bilateral 0 12/10/2016 Encounters Date Type Department Care Team Description 11/03/2024 Results Follow-Up [facility] [address] [place] [phone] Yas Gallego PA CBC with auto differential, CRP (acute phase), Erythrocyte sedimentation rate, Additional followed-up results: 5 11/02/2024 Telephone [facility] [address] [facility] [address] [place] [address] Yas Gallego PA 11/01/2024 2:15 PM CDT - 11/01/2024 11:59 PM CDT Hospital Encounter [address] [address] Effusion of left knee; Pain due to total left knee replacement, subsequent encounter Discharge Disposition: Discharge to home or self care 11/01/2024 2:15 PM CDT Lab [facility] Outpatient Lab at [address] [id number] Essential hypertension (Primary Dx) 11/01/2024 1:35 PM CDT Ancillary Procedure [facility] Imaging at [address] [address] 11/01/2024 1:15 PM CDT Office Visit [facility] [address] [place] [phone] Yas Gallego PA Effusion of left knee (Primary Dx); Pain due to total left knee replacement, subsequent encounter 09/23/2024 Orders Only [facility] Cardiology [address] [facility] Medical Office Building [address] [place] [address] Roddy Gallegos MD PhD from Last 3 Months Surgical History Surgery Date Site/Laterality Comments CARPAL TUNNEL RELEASE Carpal tunnel release CHOLECYSTECTOMY SHOULDER ARTHROSCOPY ANGIO SELECTIVE INTERNAL CAR OTID RIGHT 06/22/2023 Right THYROIDECTOMY, PARTIAL Medical History Medical History Date Comments Coronary artery disease Fatty tu mor left ventricle Hypertension controlled Hyperlipidemia GERD (gastroesophageal reflux disease) Diverticulitis of colon Arthritis Bilateral Should ers Hypothyroidism Family History Medical History Relation Name Comments Heart attack Mother Heart disease Mother Family history of cardiac disorder - (Added by TW Conv) Heart disease Other 1 Family history of Heart disease; Cancer Other 2 Family history of Cancer, unknown; Relation Name Status Comments Father Mother Other 1 Other 2 Social History Tobacco Use Types Packs/Day Years Used Date Smoking Tobacco: Former Cigarettes Q uit: 2004 Smokeless Tobacco: Never Tobacco Cessation:Counseling Given: Not Answered Alcohol Use Standard Drinks/Week Comments No 0 [...] on file 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 Gender Identity Not on file Sexual Orientation Not on file Obstetrics History Last Filed Vital Signs Vital Sign Reading Time Taken Comments Blood Pressure 132/82 11/01/2024 1:13 PM CDT Pulse 77 11/01/2024 1:13 PM CDT Temperature 36.7 C (98.1 F) 09/29/2023 3:45 PM CDT Respiratory Rate 20 09/29/2023 3:45 PM CDT Oxygen Saturation 96% 04/07/2024 10:28 AM CDT Inhaled Oxygen Concentration - - Weight 63.5 kg (140 lb) 11/01/2024 1:13 PM CDT Height 152.4 cm (5') 11/01/2024 1:13 PM CDT Body Mass Index 27.34 11/01/2024 1:13 PM CDT Plan of Treatment Health Maintenance Due Date Last Done Comments Colon Cancer Screening-Colonoscopy 1950 Depression Screening 1950 Hepatitis C Screening 1950 Osteoporosis Screening-Bone Density Scan 1950 DTaP/Tdap/Td Vaccine (1 - Tdap) 1960 Hepatitis B Screening 09/06/1967 Pneumococcal vaccine 65+ (1 of 1 - PCV) 09/06/1999 Zoster Vaccine (1 of 2) 09/06/1999 Well Visit 65+ 2014 Fall Risk Assessment 09/28/2024 09/29/2023, 05/18/20 Influenza Vaccine (Season Ended) 2025 Medical Devices Implanted Type Area Director Fixed Income Device Identifier Shelf Expiration Date Model / Serial / Lot Lead (Rv)-08/14/2017 Implanted:07/2017 by Roddy Gallegos MD PhD (Quantity not on file) Lead Heart Medtronic Cardiac Rhythm Mgmt 5076/52 / [id number] / Lead (Ra)-08/14/2017 Implanted:07/2017 by Roddy Gallegos MD PhD (Quantity not on file) Lead Heart [employer]tronic Cardiac Rhythm Mgmt 5076/45 / [id number] / Pacemaker-2017 Implanted:07/2017 by Roddy Gallegos MD PhD (Quantity not on file) Pacemaker Chest Medtronic Cardiac Rhythm Mgmt [id number] YECENIA / [id number] / [employer] Ar-9503m-03 Univers Revers 39mm Shoulder +3mm Medium Insert Humeral Sterile - [id number] Implanted:Qty: 1 on 10/25/2020 by Zach Magana MD at [facility] Left: Shoulder [employer] AR-9503M-0 .[id number] [employer] [id number] Baseplate 24mm 10 Deg Full Augment Oblique - [id number] Implanted:Qty: 1 on 10/25/2020 by Zach Magana MD at [facility] Left: Shoulder [employer] 05/14/2025 AR-9580-24 [id number] [employer] [id number] Baseplate 24mm 10 Deg Full Augment Oblique - [id number] Implanted:Qty: 1 on 10/25/2020 by Zach Magana MD at [facility] Left: Shoulder [employer] 05/14/2025 AR-9580-24 10 / [id number] Modular Post For Augmented Mgs Baseplate, 25 Mm Ref Ar-9582-25 Implanted:Qty: 1 on 10/25/2020 by Zach Magana MD at [facility] Left: Shoulder [employer] [id number] 05/14/2025 AR-9582-25 / N/A / [id number] Description:[facility] ITEM# [id number] FLAGGED IN [facility] 10/26/20 CHARGE CODE ASSIGNED [id number] COST EA. 200.00 [employer] [id number] silva Revers Biosync 39mm 24mm Glenosphere Taper Baseplate - [id number] Implanted:Qty: 1 on 10/25/2020 by Zach Magana MD at [facility] Left: Shoulder [employer] AR-9564-24 39 / / [id number] [employer] [id number] ers Revers 5.5mm 32mm Lock Modular Glenoid Peripheral Screw - [id number] Implanted:Qty: 1 on 10/25/2020 by Zach Magana MD at [facility] Left: Shoulder [employer] 04/14/2024 AR-9563-32 / / [id number] [employer] [id number] ers Revers 5.5mm 32mm Lock Modular Glenoid Peripheral Screw - [id number] Implanted:Qty: 1 on 10/25/2020 by Zach Magana MD at [facility] Left: Shoulder [employer] AR-9563-32 / / [id number] [employer] [id number] cunivers Revers 39mm Suture Shoulder Left +2 Cup Humeral - [id number] Implanted:Qty: 1 on 10/25/2020 by Zach Magana MD at [facility] Left: Shoulder [employer] AR-9502F-3 9LCPC / / [id number] [employer] Ar-9501-11s Univers Revers Univers [place] Shoulder 11 Stem Humeral - [id number] Implanted:Qty: 1 on 10/25/2020 by Zach Magnaa MD at [facility] Left: Shoulder [employer] AR-9501-11 S / / [id number] Depuy Orthopaedics Inc Attune Fb Tib Base Sz 4 Por [id number] - [id number] Implanted:Qty: 1 on 09/29/2023 by Zach Magana MD at [facility] Left: Knee [employer] Inc [id number] 03/14/2032 [id number] / / [id number] [employer] Attune Cruciate Retain Cementless Knee Left 5 Component Femoral [id number] - [id number] Implanted:Qty: 1 on 09/29/2023 by Zach Magana MD at [facility] Left: Knee [employer] Inc [id number] 10/12/2032 [id number] / / [id number] Dep[employer] Insert Tibial Knee Fixed Lm Posterior Stabilized Attune 7mm Size 5 Polyethylene [id number] - [id number] Implanted:Qty: 1 on 09/29/2023 by Zach Magana MD at [facility] Left: Knee [employer] [id number] 06/14/2030 [id number] / / [id number] Procedures Procedure Name Priority Date/Time Associated Diagnosis Comments CELL DIFFERENTIAL, BODY FLUID Routine 11/01/2024 2:15 PM CDT Effusion of left knee Pain due to total left knee replacement, subsequent encounter DIFFERENTIAL AUTO Routine 11/01/2024 2:1 5 PM CDT Effusion of left knee Pain due to total left knee replacement, subsequent encounter CELL COUNT W/REFLEX DIFFERENTIAL, BODY FLUID Routine 11/01/2024 2:15 PM CDT Effusion of left knee Pain due to total left knee replacement, subsequent encounter CRYSTAL ANALYSIS, BODY FLUID Routine 11/01/2024 2:15 PM CDT Effusion of left knee Pain due to total left knee replacement, subsequent encounter ERYTHROCYTE SEDIMENTATION RATE Routine 11/01/2024 2:15 PM CDT Effusion of left knee Pain due to total left knee replacement, subsequent encounter CRP (ACUTE PHASE) Routine 11/01/2024 2:1 5 PM CDT Effusion of left knee Pain due to total left knee replacement, subsequent encounter CBC WITH AUTO DIFFERENTIAL Routine 11/01/2024 2:15 PM CDT Effusion of left knee Pain due to total left knee replacement, subsequent encounter AEROBIC AND ANAEROBIC CULTURE AND GRAM STAIN Routine 11/01/2024 2:15 PM CDT Effusion of left knee Pain due to total left knee replacement, subsequent encounter XR KNEE LEFT 3 VIEWS Schedule Routine, Read Routine (OP Routine) 11/01/2024 1:40 PM CDT Effusion of left knee Pain due to total left knee replacement, subsequent encounter NH ARTHROCENTESIS ASPIR&/INJ MAJOR JT/BURSA W/O US Routine 11/01/2024 1:15 PM CDT Effusion of left knee DEVICE CHECK - REMOTE Routine 09/23/2024 2:47 AM CDT from Last 3 Months Results * Crystal Analysis, Body Fluid (11/01/2024 2:15 PM CDT) Specimen type, fld Synovial Crystals Not Present ANA MARIA MOORE Fluid 11/01/2024 2:15 PM CDT 11/01/2024 10:06 PM CDT Narrative ANA MARIA - 11/02/2024 9:01 AM CDT Specify:->left knee us Yas QURESHI LAB BODY FLUIDS AND STO OLS ORDERABLES Final Result ANA MARIA MOORE [address] [address] Department [place] [address] * Cell Differential, Body Fluid (11/01/2024 2:15 PM CDT) Total cells diffed 100 % Comment: Interpretive Data Unless otherwise specified, the reference range and other method performance specifications have not been established for CSF/Body Fluid tests. The test results should be integrated into the clinical context for interpretation. Current interpretive data was last revised on 2019. Neutrophils, fld 18 % [facility] Lymphs, fld 77 % [facility] Monocyte, fld 5 % [facility] Fluid 11/01/2024 2:15 PM CDT 11/01/2024 10:06 PM CDT Yas QURESHI LAB BODY FLUIDS AND STO OLS ORDERABLES Final Result Performing Organization Address [facility] Co de Phone Number ANA MARIA [phone] [address] [facility] [place] [address] * Cell count w/rflx diff, body fluid (11/01/2024 2:15 PM CDT) Specimen type, fld Synovial Color, fld Yellow [facility] Clarity, fld Cloudy [facility] Nucleated cells, fld 213 /cumm [facility] Comment: Interpretive Data Unless otherwise specified, the reference range and other method performance specifications have not been established for CSF/Body Fluid tests. The test results should be integrated into the clinical context for interpretation. Current interpretive data was last revised on 2019. RBC, fld 2,000 /cumm [facility] Fluid 11/01/2024 2:15 PM CDT 11/01/2024 9:20 PM CDT Yas QURESHI LAB BODY FLUIDS AND STO OLS ORDERABLES Final Result Performing Organization Address [facility]/ZIP Co de Phone Number ANA MARIA [phone] [address] [facility] [place] [address] * (ABNORMAL) Differential, auto (11/01/2024 2:15 PM CDT) Neutrophil abs 3.99 1.50 - 6.50 K/cumm Imm gran abs 0.04 0.00 - 0.10 K/cumm [facility] Lymphocyte abs 3.96(H) 0.80 - 3.30 K/cumm [facility] Monocyte abs 0.77 0.20 - 0.80 K/cumm [facility] Eosinophil abs 0.17 0.00 - 0.50 K/cumm [facility] Basophil abs 0.05 0.00 - 0.10 K/cumm [facility] Neutrophil pct 44.4 % [facility] Comment: Interpretive Data Percent cell count reference ranges are not reported, since discordance with absolute values may lead to misinterpretation of CBC data. Current Interpretive Data was last revised on 2017. Imm gran pct 0.4 % [facility] Comment: Interpretive Data Percent cell count reference ranges are not reported, since discordance with absolute values may lead to misinterpretation of CBC data. Current Interpretive Data was last revised on 2017. Lymphocyte pct 44.1 % [facility] Comment: Interpretive Data Percent cell count reference ranges are not reported, since discordance with absolute values may lead to misinterpretation of CBC data. Current Interpretive Data was last revised on 2017. Monocyte pct 8.6 % [facility] Comment: Interpretive Data Percent cell count reference ranges are not reported, since discordance with absolute values may lead to misinterpretation of CBC data. Current Interpretive Data was last revised on 2017. Eosinophil pct 1.9 % [facility] Comment: Interpretive Data Percent cell count reference ranges are not reported, since discordance with absolute values may lead to misinterpretation of CBC data. Current Interpretive Data was last revised on 2017. Basophil pct 0.6 % [facility] Comment: Interpretive Data Percent cell count reference ranges are not reported, since discordance with absolute values may lead to misinterpretation of CBC data. Current Interpretive Data was last revised on 2017. Blood 11/01/2024 2:15 PM CDT 11/01/2024 9:20 PM CDT Yas QURESHI LAB BLOOD ORDERABLES Fi nal Result ANA MARIA [address] [address] Department [place] [address] * Aerobic and anaerobic culture and gram stain Synovial fluid Knee, left (11/01/2024 2:15 PM CDT) Direct Specimen Exam Stain: Cytospin Gram stain shows: Few polymorphonuclear leukocytes seen. Red blood cells present. No organisms seen. Comment:Testing performed by : [facility], [address] [place]., [address] Report Final Report: No growth [facility] Comment:Testing performed by : [facility], [address] [place]., [address] Synovial fluid (Knee, left) 11/01/2024 2:15 PM CDT 11/02/2024 1:11 AM CDT Narrative [facility] - 11/08/2024 12:41 PM CDT Fluid specimen received. Testing performed by [facility] ([phone]) Specimens submitted from normally sterile body sites will have all bacterial morphotypes identified. Specimens that contain grossly mixed darian and/or are from body sites that are not normally sterile will be examined for Staphylococcus aureus, Pseudomonas aeruginosa, beta-hemolytic strep, vancomycin-resistant Enterococcus, Bacteroides, Parabacteroides, Clostridium perfringens and fungus. If any of these are isolated, the organism will be reported. Current interpretive data was last revised on 2019. Yas QURESHI LAB MICROBIOLOGY - GENE [facility] ORDERABLES Final Result [facility] [id number] [address] Department of Laboratories [place], [place] [id number] * (ABNORMAL) CBC with auto differential (11/01/2024 2:15 PM CDT) WBC 8.98 3.80 - 9.90 K/cumm Hgb 12.0 11.9 - 15.5 g/dL [facility] Hct 37.6 35.6 - 45.5 % [facility] Plt 270 150 - 400 K/cumm [facility] MPV 10.7 9.1 - 12.3 fL [facility] RBC 4.05 3.90 - 5.20 M/cumm [facility] MCV 92.8 81.3 - 96.4 fL [facility] CH MCH 29.6 27.1 - 33.3 pg [facility] MCHC 31.9(L) 32.3 - 35.7 g/dL [facility] RDW CV 13.1 11.1 - 14.9 % [facility] RDW SD 44.9 35.7 - 48.1 fL [facility] NRBC abs 0.00 0.00 - 0.01 K/cumm [facility] Blood 11/01/2024 2:15 PM CDT 11/01/2024 9:20 PM CDT Yas QURESHI LAB BLOOD ORDERABLES Fi nal Result Performing Organization Address City/[facility] Co de Phone Number ANA MARIA OSCAR [phone] [address] [facility] [place] [address] * (ABNORMAL) Erythrocyte sedimentation rate (11/01/2024 2:15 PM CDT) Erythrocyte sedimentation rate 60(H) 1 - 30 mm/hr Comment:Testing performed by : [facility], [facility], [place], [address] Blood 11/01/2024 2:15 PM CDT 11/01/2024 9:20 PM CDT Result [facility] Yas QURESHI LAB BLOOD ORDERABLES Fi nal Result Performing Organization Address City/[facility] Co de Phone Number ANA MARIA OSCAR [address] [address] [facility] [place] [address] * CRP (acute phase) (11/01/2024 2:15 PM CDT) CRP 3.7 <=10.0 mg/L Blood 11/01/2024 2:15 PM CDT 11/01/2024 9:20 PM CDT Yas QURESHI LAB BLOOD ORDERABLES Fi nal Result Performing Organization Address City/[facility]/ZIP Co de Phone Number ANA MARIA OSCAR [address] [address] [facility] [place] [address] * XR Knee Left 3 View (11/01/2024 1:40 PM CDT) Anatomical Region Laterality Modality Lower Extremities, Knee Left Digital Radiography Narrative 11/01/2024 5:17 PM CDT Radiographs of the left knee reviewed, interpreted, and compared with previous images. Status post left total knee arthroplasty changes with implants in acceptable position. No evidence of implant failure or loosening is seen. Joint effusion appreciated. Result [facility] Yas QURESHI IMG XR PROCEDURES Final Result * [place] ARTHROCENTESIS ASPIR&/INJ MAJOR JT/BURSA W/O US (11/01/2024 1:15 PM CDT) Narrative Zach Magana MD - 11/01/2024 1:15 PM CDT Zach Magana MD 11/02/2024 10:52 AM Joint Aspiration Performed by: Yas Gallego PA Authorized by: Yas Gallego PA Indications: Joint swelling, pain, possible septic joint and diagnostic evaluation Body area: Knee Joint: Left knee Local anesthesia used?: No Preparation: Patient was prepped and draped in usual sterile fashion Needle size: 18 G Approach: Superior Aspirate amount (ml): 35 Aspirate: Yellow patient tolerated the procedure well with no immediate complications Result [facility] Yas QURESHI IN CLINIC/BEDSIDE ORDER MICKY Final Result * DEVICE CHECK - REMOTE (09/23/2024 2:47 AM CDT) Anatomical Region Laterality Modality Other 09/23/2024 2:47 AM CDT Narrative 09/30/2024 10:06 AM CDT Interpretation Summary: Battery and Leads (BL) Normal parameters noted on battery and lead(s) --- 7.1 yrs remaining longevity. Lead impedance, sensing, and threshold trends stable and appropriate. No short V-V intervals. Presenting Rhythm (NH) Atrial Pacing-Ventricular Sensing (AP-VS) --- AP/VS 60 bpm. Arrhythmic events (AE) Nonsustained VT event(s) identified --- Since 06/24/24: One VT-Mon & 5 VT-NS detections, with EGMs appearing to show NSVT, max 17 sec (#114). Pt has h/o NSVT. Meds include Carvedilol (per Epic list). Transmission Information (TI) Device Summary Report Follow Up (FU) Patient's primary treating physician will be apprised of findings Procedure Roddy Johnson MD PhD - 09/30/2024 Interpretation Summary: Battery and Leads (BL) Normal parameters noted on battery and lead(s) --- 7.1 yrs remaininglongevity. Lead impedance, sensing, and threshold trends stable andappropriate. No short V-V intervals. Presenting Rhythm (NH) Atrial Pacing-Ventricular Sensing (AP-VS) --- AP/VS 60 bpm. Arrhythmic events (AE) Nonsustained VT event(s) identified --- Since 06/24/24: One VT-Mon & 5VT-NS detections, with EGMs appearing to show NSVT, max 17 sec (#114).Pt has h/o NSVT. Meds include Carvedilol (per Epic list). Transmission Information (TI) Device Summary Report Follow Up (FU) Patient's primary treating physician will be apprised of findings Roddy Gallegos MD PhD [facility] C[facility] PROCEDURES Final Result from Last 3 Months Insurance MEDICARE [facility] Address: [facility] [address] [place] [address] [facility] H[facility]/PPO Address: [address] [address] [place] [address] MEDICARE [facility] MEDICARE R [facility] H[facility]/PPO Address: [address] [address] [place] [address] Advance Directives For more information, please contact: [phone] * Full Code (Latest Code Status on File) Date Activated Date Inactivated Comments 10/25/2020 2:26 PM 10/26/2020 7:41 PM Care Teams Temper Mill Operator Relationship Specialty Start Date End Date Landon Hamilton DO PCP - General 10/18/16 Idris Cleaning MD [address] [place] [address] [employer] Cardiology 08/31/20 Yas Gallego PA [address] [place] [address] Physician Dolly Driver Orthopedic Surgery 10/26/20 Po Dickerson PA [address] [place] [address] [place] [address] Orthopedic Surgery 09/29/23
--- OUTSIDE RECORDS SUMMARY | 2024-11-08 12:52 | XMS_ITS | Encounter Summary ---
Author Organization [facility] Address [address] [place] [address] Phone Care Team Providers Care Heel Cutter Name Role Phone Landon Hamilton DO Primary Care Provider +- [phone] Idris Cleaning MD Unavailable [phone] Yas Gallego Unavailable [phone] Po Dickerson Unavailable [phone] Encounter Details Date Type Department Care Team (Late st Contact Info) Description 08/16/2017 Orders Only [facility] ProviderPatti MD [address] [place] [address] Social History Tobacco Use Types Packs/Day Years Used Date Smoking Tobacco: Former Smokeless Tobacco: Former Alcohol Use Standard Drinks/Week Comments No 0 (1 standard drink = 0.6 oz pur e alcohol) Comments Unknown Sex and Gender Information Value Date Recorded Sex Assigned at Not on file 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 Historical Provider [facility] JANEL GUTIERRES Final Result documented in this encounter Visit Diagnoses Not on filedocumented in this encounter Care Teams Heel Cutter Relationship Specialty Start Date End Date Landon Hamilton DO PCP - General 10/18/16 Idris Cleaning MD [address] [place] [address] Web Weaver Cardiology 08/31/20 Yas Gallego PA [address] [place] [address] Physician Staff Toxicologist Orthopedic Surgery 10/26/20 Po Dickerson PA [address] [facility] [address] ESTRADA [address] [place] [address] Orthopedic Surgery 09/29/23 documented as of this encounter
--- OUTSIDE RECORDS SUMMARY | 2024-11-08 12:52 | XMS_ITS | Referral Summary ---
Author Organization [facility] Address [address] [place] [address] Care Team Providers Care Implementation Consultant Name Role Phone Landon Hamilton DO Primary Care Provider + [phone] Idris Cleaning MD Unavailable [phone] Yas Gallego Unavailable [phone] Po Dickerson Unavailable [phone] Encounters Date Type Department Care Team Description 11/03/2024 Results Follow-Up [facility] Orthopedic and Sports Medicine [address] [place] [phone] Yas Gallego PA CBC with auto differential, CRP (acute phase), Erythrocyte sedimentation rate, Additional followed-up results: 5 11/02/2024 Telephone [facility] Orthopedics and Sports Medicine [address] [facility] [address] [place] [address] Yas Gallego PA 11/01/2024 2:15 PM CDT - 11/01/2024 11:59 PM CDT Hospital Encounter [address] [address] Effusion of left knee; Pain due to total left knee replacement, subsequent encounter Discharge Disposition: Discharge to home or self care 11/01/2024 2:15 PM CDT Lab [facility] Outpatient Lab at [address] [address] Essential hypertension (Primary Dx) 11/01/2024 1:35 PM CDT Ancillary Procedure [facility] Imaging at [place] [address] [place] [phone] 11/01/2024 1:15 PM CDT Office Visit [facility] Orthopedic and Sports Medicine [address] [place] [address] Yas Gallego PA Effusion of left knee (Primary Dx); Pain due to total left knee replacement, subsequent encounter 09/23/2024 Orders Only [facility] [address] [facility] Medical Office Building [address] [place] [address] Roddy Gallegos MD PhD from Last 3 Months Allergies Active Allergy Reactions Criticality Noted Date Comments Oxycodone Vomiting Low 11/24/2023 Profound vomiting and diarrhea-not well tolerated Medications levothyroxine (SYNTHROID) 25 mcg tablet Take 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 0 Active omeprazole (PriLOSEC) 40 [...] (10/09/2020): Added automatically from request for surgery [id number] Biceps tendonitis on left 10/09/2020 Overview (10/09/2020): Added automatically from request for surgery [id number] Preop testing 08/31/2020 Rotator cuff arthropathy of [...] Primary osteoarthritis of shoulders, bilateral 0 12/10/2016 Social History Tobacco Use Types Packs/Day Years Used Date Smoking Tobacco: Former Cigarettes Q uit: 2005 Smokeless Tobacco: Never Tobacco Cessation:Counseling Given: Not [...] on file 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 Gender Identity Not on file Sexual Orientation Not on file Last Filed Vital Signs Vital Sign Reading [...] 11/01/2024 1:13 PM CDT Plan of Treatment Not on file Medical Devices Implanted Type Area Model Artists' Device Identifier Shelf Expiration Date Model / Serial / Lot Lead (Rv)-08/14/2017 Implanted:07/2017 by Roddy Gallegos MD PhD (Quantity not on file) Lead Heart Medtronic Cardiac Rhythm Mgmt 5076/52 / [id number] / Lead (Ra)-08/14/2017 Implanted:07/2017 by Roddy Gallegos MD PhD (Quantity not on file) Lead Heart Medtronic Cardiac Rhythm Mgmt 5076/45 / [id number] / Pacemaker-2017 Implanted:07/2017 by Roddy Gallegos MD PhD (Quantity not on file) Pacemaker Chest Medtronic Cardiac Rhythm Mgmt W3DR01 [facility] / [id number] / [employer] Ar-9503m-03 [employer] Revers 39mm Shoulder +3mm Medium Insert Humeral Sterile - [id number] Implanted:Qty: 1 on 10/25/2020 by Zach Magana MD at [facility] Left: Shoulder [employer] AR-9503M-0 .[id number] [employer] [id number] Baseplate 24mm 10 Deg Full Augment Oblique - [id number] Implanted:Qty: 1 on 10/25/2020 by Zach Magana MD at [facility] Left: Shoulder [employer] 05/14/2025 AR-9580-24 [id number] [employer] [id number] Baseplate 24mm 10 Deg Full Augment Oblique - [id number] Implanted:Qty: 1 on 10/25/2020 by Zach Magana MD at [facility] Left: Shoulder [employer] 05/14/2025 AR-9580-24 10 [id number] Modular Post For Augmented Mgs Baseplate, 25 Mm Ref Ar-9582-25 Implanted:Qty: 1 on 10/25/2020 by Zach Magana MD at [facility] Left: Shoulder [employer] [id number] 05/14/2025 AR-9582-25 / N/A / [id number] Description:[facility] ITEM# [id number] FLAGGED IN [facility] 10/26/20 CHARGE CODE ASSIGNED [id number] COST EA. 200.00 [employer] [id number] silva Revers Biosync 39mm 24mm Glenosphere Taper Baseplate - [id number] Implanted:Qty: 1 on 10/25/2020 by Zach Magana MD at [facility] Left: Shoulder [employer] AR-9564-24 39 .[id number] [employer] [id number] ers Revers 5.5mm 32mm Lock Modular Glenoid Peripheral Screw - [id number] Implanted:Qty: 1 on 10/25/2020 by Zach Magana MD at [facility] Left: Shoulder [employer] 04/14/2024 AR-9563-32 / / [id number] [employer] [id number] ers Revers 5.5mm 32mm Lock Modular Glenoid Peripheral Screw - [id number] Implanted:Qty: 1 on 10/25/2020 by Zach Magana MD at [facility] Left: Shoulder [employer] AR-9563-32 / / [id number] [employer] [id number] cunivers Revers 39mm Suture Shoulder Left +2 Cup Humeral - [id number] Implanted:Qty: 1 on 10/25/2020 by Zach Magana MD at [facility] Left: Shoulder [employer] AR-9502F-3 9LCPC / / [id number] [employer] Ar-9501-11s [facility] Shoulder 11 Stem Humeral - [id number] Implanted:Qty: 1 on 10/25/2020 by Zach Magana MD at [facility] Left: Shoulder [employer] AR-9501-11 S / / [id number] [employer] Attune Fb Tib Base Sz 4 Por [id number] - [id number] Implanted:Qty: 1 on 09/29/2023 by Zach Magana MD at [facility] Left: Knee [employer] [id number] 03/14/2032 [id number] / / [id number] [employer] Attune Cruciate Retain Cementless Knee Left 5 Component Femoral [id number] - [id number] Implanted:Qty: 1 on 09/29/2023 by Zach Magana MD at [facility] Left: Knee [employer] [id number] 10/12/2032 [id number] / / [id number] [employer] Insert Tibial Knee Fixed Lm Posterior Stabilized Attune 7mm Size 5 Polyethylene [id number] - [id number] Implanted:Qty: 1 on 09/29/2023 by Zach Magana MD at [facility] Left: Knee [employer] [id number] 06/14/2030 [id number] / / [id number] Procedures Procedure Name Priority Date/Time Associated Diagnosis [...] to total left knee replacement, subsequent encounter TX ARTHROCENTESIS ASPIR&/INJ MAJOR JT/BURSA W/O US Routine 11/01/2024 1:15 PM CDT Effusion of left knee DEVICE CHECK - REMOTE Routine 09/23/2024 2:47 AM CDT from Last 3 Months Results * Crystal Analysis, Body Fluid (11/01/2024 2:15 PM CDT) Specimen type, fld Synovial Crystals Not Present CERNER CH Fluid 11/01/2024 2:15 PM CDT 11/01/2024 10:06 PM CDT Narrative CERNER CH - 11/02/2024 9:01 AM CDT Specify:->left knee AnayeliKailey QURESHI LAB BODY FLUIDS AND STO OLS ORDERABLES Final Result Performing Organization Address [facility] Co de Phone Number ANA MARIA MOORE [address] [place] [address] * Cell Differential, Body Fluid (11/01/2024 2:15 PM CDT) Total cells diffed 100 % Comment: Interpretive Data Unless otherwise specified, the reference range and other method performance specifications have not been established for CSF/Body Fluid tests. The test results should be integrated into the clinical context for interpretation. Current interpretive data was last revised on 2019. Neutrophils, fld 18 % CERNER Lymphs, fld 77 % CERNER Monocyte, fld 5 % CERNER CH Fluid 11/01/2024 2:15 PM CDT 11/01/2024 10:06 PM CDT Yas QURESHI LAB BODY FLUIDS AND STO OLS ORDERABLES Final Result Performing Organization Address [facility]/ZIP Co de Phone Number ANA MARIA MOORE [address] [facility] [place] [address] * Cell count w/rflx diff, body fluid (11/01/2024 2:15 PM CDT) Specimen type, fld Synovial Color, fld Yellow CERNER Clarity, fld Cloudy CERNER Nucleated cells, fld 213 /cumm CERNER CH Comment: Interpretive Data Unless otherwise specified, the reference range and other method performance specifications have not been established for CSF/Body Fluid tests. The test results should be integrated into the clinical context for interpretation. Current interpretive data was last revised on 2019. RBC, fld 2,000 /cumm [facility] Fluid 11/01/2024 2:15 PM CDT 11/01/2024 9:20 PM CDT Yas QURESHI LAB BODY FLUIDS AND STO OLS ORDERABLES Final Result ANA MARIA [address] [facility] [place] [address] * (ABNORMAL) Differential, auto (11/01/2024 2:15 PM CDT) Neutrophil abs 3.99 1.50 - 6.50 K/cumm Imm gran abs 0.04 0.00 - 0.10 K/cumm [facility] Lymphocyte abs 3.96(H) 0.80 - 3.30 K/cumm [facility] Monocyte abs 0.77 0.20 - 0.80 K/cumm [facility] Eosinophil abs 0.17 0.00 - 0.50 K/cumm [facility] Basophil abs 0.05 0.00 - 0.10 K/cumm [facility] Neutrophil pct 44.4 % [facility] Comment: Interpretive Data Percent cell count reference ranges are not reported, since discordance with absolute values may lead to misinterpretation of CBC data. Current Interpretive Data was last revised on 2017. Imm gran pct 0.4 % [facility] Comment: Interpretive Data Percent cell count reference ranges are not reported, since discordance with absolute values may lead to misinterpretation of CBC data. Current Interpretive Data was last revised on 2017. Lymphocyte pct 44.1 % [facility] Comment: Interpretive Data Percent cell count reference ranges are not reported, since discordance with absolute values may lead to misinterpretation of CBC data. Current Interpretive Data was last revised on 2017. Monocyte pct 8.6 % [facility] Comment: Interpretive Data Percent cell count reference ranges are not reported, since discordance with absolute values may lead to misinterpretation of CBC data. Current Interpretive Data was last revised on 2017. Eosinophil pct 1.9 % ANA MARIA MOORE Comment: Interpretive Data Percent cell count reference ranges are not reported, since discordance with absolute values may lead to misinterpretation of CBC data. Current Interpretive Data was last revised on 2017. Basophil pct 0.6 % ANA MARIA MOORE Comment: Interpretive Data Percent cell count reference ranges are not reported, since discordance with absolute values may lead to misinterpretation of CBC data. Current Interpretive Data was last revised on 2017. Blood 11/01/2024 2:15 PM CDT 11/01/2024 9:20 PM CDT Yas QURESHI LAB BLOOD ORDERABLES Fi nal Result ANA MARIA MOORE [address] [address] [place] [address] * Aerobic and anaerobic culture and gram stain Synovial fluid Knee, left (11/01/2024 2:15 PM CDT) Direct Specimen Exam Stain: Cytospin Gram stain shows: Few polymorphonuclear leukocytes seen. Red blood cells present. No organisms seen. Comment:Testing performed by : [facility], [address] [place]., [address] Report Final Report: No growth ANA MARIA MOORE Comment:Testing performed by : [facility], [address] [place] [address]., [address] Synovial fluid (Knee, left) 11/01/2024 2:15 PM CDT 11/02/2024 1:11 AM CDT Narrative ANA MARIA MOORE - 11/08/2024 12:41 PM CDT Fluid specimen received. Testing performed by [facility] Microbiology Laboratory ([phone]) Specimens submitted from normally sterile body sites [...] 2019. Yas QURESHI LAB MICROBIOLOGY - GENE RAL ORDERABLES Final Result ANA MARIA [address] [place] [address] * (ABNORMAL) CBC with auto differential (11/01/2024 2:15 PM CDT) Pathologist [facility] WBC 8.98 3.80 - 9.90 K/cumm Hgb 12.0 11.9 - 15.5 g/dL CERNER Hct 37.6 35.6 - 45.5 % [facility] Plt 270 150 - 400 K/cumm [facility] CH MPV 10.7 9.1 - 12.3 fL [facility] RBC 4.05 3.90 - 5.20 M/cumm [facility] MCV 92.8 81.3 - 96.4 fL [facility] MCH 29.6 27.1 - 33.3 pg [facility] MCHC 31.9(L) 32.3 - 35.7 g/dL [facility] RDW CV 13.1 11.1 - 14.9 % [facility] CH RDW SD 44.9 35.7 - 48.1 fL [facility] NRBC abs 0.00 0.00 - 0.01 K/cumm [facility] Blood 11/01/2024 2:15 PM CDT 11/01/2024 9:20 PM CDT Yas QURESHI LAB BLOOD ORDERABLES Fi nal Result ANA MARIA MOORE [address] [address] [place] [address] * (ABNORMAL) Erythrocyte sedimentation rate (11/01/2024 2:15 PM CDT) [facility] Erythrocyte sedimentation rate 60(H) 1 - 30 mm/hr Comment:Testing performed by : [facility], [facility], [place], [address] Blood 11/01/2024 2:15 PM CDT 11/01/2024 9:20 PM CDT Yas QURESHI LAB BLOOD ORDERABLES Fi nal Result Performing Organization Address City/[facility] Co de Phone Number ANA MARIA MOORE [address] [address] [facility] [place] [address] * CRP (acute phase) (11/01/2024 2:15 PM CDT) CRP 3.7 <=10.0 mg/L Blood 11/01/2024 2:15 PM CDT 11/01/2024 9:20 PM CDT Result [facility] Yas QURESHI LAB BLOOD ORDERABLES Fi nal Result Performing Organization Address [facility] Phone Number ANA MARIA MOORE [address] [address] [facility] [place] [address] * XR Knee Left 3 View (11/01/2024 1:40 PM CDT) Anatomical Region Laterality Modality Lower Extremities, Knee Left Digital Radiography Narrative 11/01/2024 5:17 PM CDT Radiographs of the left knee reviewed, interpreted, and compared with previous images. Status post left total knee arthroplasty changes with implants in acceptable position. No evidence of implant failure or loosening is seen. Joint effusion appreciated. Yas QURESHI IMG XR PROCEDURES Final Result * TX ARTHROCENTESIS ASPIR&/INJ MAJOR JT/BURSA W/O US (11/01/2024 [...] the procedure well with no immediate complications us Yas QURESHI IN CLINIC/BEDSIDE ORDER MICKY Final [...] appropriate. No short V-V intervals. Presenting Rhythm (TX) Atrial Pacing-Ventricular Sensing (AP-VS) --- AP/VS 60 bpm. Arrhythmic events (AE) Nonsustained VT event(s) identified --- Since 06/24/24: One VT-Mon & 5 VT-NS detections, with EGMs appearing to show NSVT, max 17 sec (#114). Pt has h/o NSVT. Meds include Carvedilol (per Epic list). Transmission Information (TI) Device Summary Report Follow Up (FU) Patient's primary treating physician will be apprised of findings Procedure Note Roddy Gallegos MD PhD - 09/30/2024 Interpretation Summary: Battery and Leads (BL) Normal parameters noted on battery and lead(s) --- 7.1 yrs remaininglongevity. Lead impedance, sensing, and threshold trends stable andappropriate. No short V-V intervals. Presenting Rhythm (TX) Atrial Pacing-Ventricular Sensing (AP-VS) --- AP/VS 60 [...] Result from Last 3 Months Insurance MEDICARE [facility] H[facility]/PPO Address: [address] [address] [place] [address] MEDICARE [facility] MEDICARE [facility] Address: [address] [address] [place] [address] [facility] H[facility]/PPO Address: [address] [address] [place] [address] Advance Directives For more information, please contact: [phone] * Full Code (Latest Code Status on File) Date Activated Date Inactivated Comments 10/25/2020 2:26 PM 10/26/2020 7:41 PM Care Teams Implementation Consultant Relationship Specialty Start Date End Date Landon Hamilton DO PCP - General 10/18/16 Idris Cleaning MD [address] [place] [address] Casing Builder Cardiology 08/31/20 Yas Gallego PA [address] [place] [address] Physician Farm Worker Orthopedic Surgery 10/26/20 Po Dickerson PA [address] [place] [address] DR [address]STR[address] [place] [address] Orthopedic Surgery 09/29/23
[2024-11-08 19:05] LABS: Alanine Aminotransferase 13 U/L (6-35); Albumin Level 4.1 g/dL (3.5-5.1); Alkaline Phosphatase 110 U/L (38-126); Aspartate Amino Transferase 43 U/L (14-36); Bilirubin,Total 0.5 mg/dL (0.2-1.3)
[2024-11-08 20:16] LABS: Basophils Percent Auto 0.3 % (0.2-1.2); Eosinophils Absolute Auto 0.2 K/mm3 (0-0.3); Eosinophils Percent Auto 1.9 % (0-4.4); Hematocrit 36.9 % (37.0-47.0); Hemoglobin 11.9 g/dL (12.0-15.0); Immature Granulocyte Absolute 0.02 K/mm3 (0.00-0.031); Immature Granulocyte Percent A 0.2 % (0-0.5); Lymphocytes Absolute Auto 3.66 K/mm3 (0.9-3.2); Lymphocytes Percent Auto 42.4 % (18.3-44.2); Mean Corpuscular HGB Conc 32.2 g/dl (32-36); Mean Corpuscular Hemoglobin 29.6 pg (26-34); Mean Corpuscular Volume 91.8 fl (80-100); Mean Platelet Volume 11.5 fl (7.4-10.4); Monocytes Absolute Auto 0.8 K/mm3 (0.1-0.6); Monocytes Percent Auto 9.3 % (2.6-8.5); Neutrophils Percent Auto 45.9 % (45.5-73.1); Platelet Count Result 249 k/mm3 (150-375); Red Blood Count 4.02 M/mm3 (4.2-5.4); Red Cell Distribution Width 13.1 % (11.5-14.5); White Blood Count 8.6 K/mm3 (4.5-10.0)
== END 2024-11-08 12:46 | disposition home or self-care (01) ==
LOC: ANHGOSHLAB 12:47
PROVIDERS: PCP Internal Medicine; Visit Provider Internal Medicine
DX: R74.8 Abnormal levels of other serum enzymes (principal); D72.829 Elevated white blood cell count, unspecified
CPT/HCPCS: 36415; 80076; 85025

== ENCOUNTER 2024-11-11 09:19 | Outpatient (CLI) | payer OTHER, MEDICARE, SELFPAY ==
--- OUTSIDE RECORDS SUMMARY | 2024-11-11 09:26 | XMS_ITS | Patient Health Record ---
Author Organization On license of [facility] Address [address] [place] [address] Care Team Providers Care Kindergarten Teacher Name Role Phone Choco Stone Primary Care Provider [phone] Reason For Referral No Information Immunizations Vaccine [...] PART A [address] [place] [address] [id number] Janet Nowak Self - patient is the insured 1
[2024-11-11 16:37] LABS: Immature Reticulocyte Fraction 11.8 % (3.0-15.9); Reticulocyte Hemoglobin Conten 32.2 pg (28.2-36.6); Reticulocyte Percent 1.85 % (0.7-4.3); Reticulocytes Absolute 0.08 10^6/uL (0.02-0.10)
[2024-11-11 21:48] LABS: Folic Acid > 20.0 ng/mL (2.76->20)
== END 2024-11-11 09:20 | disposition home or self-care (01) ==
LOC: ANHGOSHLAB 09:21
PROVIDERS: PCP Internal Medicine; Visit Provider Internal Medicine
DX: D64.9 Anemia, unspecified (principal)
CPT/HCPCS: 36415; 82607; 82728; 82746; 85046

== ENCOUNTER 2025-05-01 15:36 | Outpatient (CLI) | payer OTHER, MEDICARE, SELFPAY ==
[2025-05-01 18:32] LABS: Hematocrit 38.9 % (37.0-47.0); Hemoglobin 12.9 g/dL (12.0-15.0); Immature Granulocyte Percent A 0.5 % (0-0.5); Lymphocytes Absolute Auto 4.35 K/mm3 (0.9-3.2); Mean Corpuscular HGB Conc 33.2 g/dl (32-36); Mean Corpuscular Hemoglobin 30.0 pg (26-34); Mean Corpuscular Volume 90.5 fl (80-100); Nucleated Red Blood Cells Absolute Auto 0.000 K/mm3 (0.0-0.012); Nucleated Red Blood Cells Perc 0.0 % (0.0-0.2); Platelet Count Result 260 k/mm3 (150-375); Red Blood Count 4.30 M/mm3 (4.2-5.4); White Blood Count 9.7 K/mm3 (4.5-10.0)
[2025-05-01 18:44] LABS: Alanine Aminotransferase 18 U/L (6-35); Albumin Level 4.3 g/dL (3.5-5.1); Alkaline Phosphatase 94 U/L (38-126); Anion Gap 5 mmol/L (4-12); Aspartate Amino Transferase 41 U/L (14-36); Bilirubin,Total 0.4 mg/dL (0.2-1.3); Blood Urea Nitrogen 14 mg/dL (7-17); Calcium 9.4 mg/dL (8.4-10.2); Carbon Dioxide 28 mmol/L (22-30); Chloride 104 mmol/L (98-107); Estimated Glomerular Filt Rate > 60; Glucose 107 mg/dL (65-110); Potassium 4.2 mmol/L (3.4-5.0); Sodium 137 mmol/L (137-145); Total Protein 7.2 g/dL (6.3-8.2)
[2025-05-01 19:01] LABS: Free T3 3.44 pg/mL (2.45-5.93); Free T4 Free Thyroxine 1.01 ng/dL (0.78-2.19)
[2025-05-01 19:19] LABS: Thyroid Stimulating Hormone 3.260 uIU/mL (0.465-4.680)
[2025-05-01 19:24] LABS: Ferritin 36.10 ng/mL (11.1-264)
== END 2025-05-01 15:37 | disposition home or self-care (01) ==
PROVIDERS: PCP Internal Medicine; Visit Provider Internal Medicine
DX: F32.5 Major depressive disorder, single episode, in full remission (principal); E03.9 Hypothyroidism, unspecified; I10 Essential (primary) hypertension; I67.1 Cerebral aneurysm, nonruptured; Z85.850 Personal history of malignant neoplasm of thyroid
CPT/HCPCS: 36415; 80053; 82728; 84439; 84443; 84481; 85025

== ENCOUNTER 2025-05-25 11:49 | Outpatient (CLI) | payer OTHER, MEDICARE, SELFPAY ==
--- OUTSIDE RECORDS SUMMARY | 2025-05-25 14:37 | XMS_ITS | Patient Health Record ---
Author Organization [facility] Address [address] [place] [address] Phone [phone] Care Team Providers Care Sole Cutter Name Role Phone Choco Stone Primary Care Provider Reason For Referral No Information Immunizations Status Vaccine Route Administration Date Visit Date Comments Administered COVID-19 Moderna 2nd IM Intramuscular 08/16/2020 COVID-19 Moderna 1ST IM Intramuscular 07/19/2020 EUA date 05/2020. Screening reviewed and consent signed. Patient tolerated well. Social History Sex Observation Social History Observation Description Sex Observation Female Plan Of Treatment No Information Insurance Providers Payer Name Payer Address Payer Phone Subscriber Number Group Number Insured Name Patient Relationship to Insured Coverage Start Date Coverage End Date MEDICARE PART A [address] [place] [phone] [id number] Janet Nowak Self - patient is the insured
[2025-05-26 15:09] LABS: Thyroglobulin by IMA YES YES
== END 2025-05-25 11:50 | disposition home or self-care (01) ==
LOC: ANHGOSHOT 11:52
PROVIDERS: PCP Internal Medicine; Visit Provider Internal Medicine
DX: Z85.850 Personal history of malignant neoplasm of thyroid (principal)
CPT/HCPCS: 84432; 86800